=== PATIENT | male | born 1945 | race Caucasian/White ===

== ENCOUNTER 2021-05-23 11:09 | Outpatient (CLI) | payer OTHER, MEDICARE, SELFPAY ==
--- NOTE | ~2021-05-23 | XR_ITS ---
XR knee LT 3V DATE: 05/23/2021 11:33 INDICATION: Medial pain following injury from fall TECHNIQUE: 3 views including cross table lateral COMPARISON: None FINDINGS: There is severe loss of joint space at the medial compartment with periarticular spurring a t all 3 compartments, consistent with osteoarthritis. No fracture or dislocation or joint effusion. No periosteal reaction or bone destruction. There is enthesopathy of the patella at the quadriceps and patellar tendon insertion sites and enthes opathy at the anterior tibial tuberosity patellar tendon insertion site. IMPRESSION: Tricompartment osteoarthritic, involving the medial compartment most severely Reviewed, dictated and finalized at location A. IMPRESSION: Tricompartment osteoarthritic, involving the medial compartment mos t severely
== END 2021-05-23 11:10 | disposition home or self-care (01) ==
PROVIDERS: PCP Family Medicine; Visit Provider Nurse Practitioner Family
DX: S89.92XA Unspecified injury of left lower leg, initial encounter (principal); X58.XXXA Exposure to other specified factors, initial encounter; M17.12 Unilateral primary osteoarthritis, left knee
CPT/HCPCS: 73562

== ENCOUNTER 2022-02-23 12:37 | Outpatient (CLI) | payer MEDICARE, SELFPAY ==
--- NOTE | ~2022-02-23 | XR_ITS ---
EXAMINATION: XR ribs BI 3V w CXR 2V DATE: 02/23/2022 14:47 INDICATION: Posterior rib pain. TECHNIQUE: Frontal and lateral views of the chest, 2 views of the right ribs on 3 radiographs, and 2 views of the left ribs on 4 radiographs ribs were obtained. COMPARISON: Chest 2 views 06/11/2019 FINDINGS: CHEST TWO VIEWS: There is no pneumonia, pleural effusion, or pneumothorax. The heart size is normal. There is a moderate-sized hiatal hernia. BILATERAL RIBS: There are old left rib fractures. IMPRESSION: 1. No acute rib fracture. 2. Moderate-sized hiatal hernia. Reviewed, dictated and finalized at location A.
[2022-02-23 13:36] LABS: Basophils Percent Auto 0.6 % (0.2-1.2); Eosinophils Absolute Auto 0.3 K/mm3 (0-0.3); Eosinophils Percent Auto 5.2 % (0-4.4); Hemoglobin 14.3 g/dL (14.0-18.0); Immature Granulocyte Absolute 0.04 K/mm3 (0.00-0.031); Immature Granulocyte Percent A 0.6 % (0-0.5); Lymphocytes Absolute Auto 1.53 K/mm3 (0.9-3.2); Lymphocytes Percent Auto 24.2 % (18.3-44.2); Mean Corpuscular HGB Conc 31.8 g/dl (32-36); Mean Corpuscular Hemoglobin 30.4 pg (26-34); Mean Corpuscular Volume 95.7 fl (80-100); Mean Platelet Volume 10.1 fl (7.4-10.4); Monocytes Absolute Auto 0.7 K/mm3 (0.1-0.6); Monocytes Percent Auto 10.4 % (2.6-8.5); Neutrophils Absolute Auto 3.7 K/mm3 (1.3-6.7); Platelet Count Result 189 k/mm3 (150-375); Red Cell Distribution Width 13.9 % (11.5-14.5); White Blood Count 6.3 K/mm3 (4.5-10.0)
[2022-02-23 13:41] LABS: Anion Gap 7 mmol/L (8-16); Blood Urea Nitrogen 15 mg/dL (9-20); Calcium 8.5 mg/dL (8.4-10.2); Carbon Dioxide 27 mmol/L (22-30); Chloride 104 mmol/L (98-107); Estimated Glomerular Filt Rate > 60; Glucose 97 mg/dL (65-110); Potassium 4.1 mmol/L (3.4-5.0); Sodium 138 mmol/L (137-145)
[2022-02-23 14:11] LABS: Thyroid Stimulating Hormone 0.232 uIU/mL (0.465-4.680)
[2022-02-23 14:23] LABS: Free T4 Free Thyroxine 1.12 ng/mL (0.78-2.19)
== END 2022-02-23 12:38 | disposition home or self-care (01) ==
PROVIDERS: PCP Family Medicine; Visit Provider Family Medicine
DX: E03.9 Hypothyroidism, unspecified (principal); I10 Essential (primary) hypertension; D64.9 Anemia, unspecified; R07.81 Pleurodynia; K44.9 Diaphragmatic hernia without obstruction or gangrene
CPT/HCPCS: 36415; 71046; 71110; 80048; 84439; 84443; 85025

== ENCOUNTER 2022-03-01 11:34 | Outpatient (CLI) | payer MEDICARE, SELFPAY ==
--- NOTE | ~2022-03-01 | XR_ITS ---
XR abdomen/kub 1V 03/01/2022 11:58 Indication: Renal colic. Right-sided flank pain. Procedure: KUB Comparison: 06/11/2019 Findings: Bowel gas pattern is nonobstructive. No acute osseous abnormality. Moderate lumbar spondylo sis. Lung bases are unremarkable. There are pelvic phleboliths. Impression: 1: No acute abdominal abnormality. Reviewed, dictated and finalized at location B. Impression: 1: No acute abdominal abnormality.
== END 2022-03-01 11:35 | disposition home or self-care (01) ==
PROVIDERS: PCP Family Medicine; Visit Provider Physician Assistant Medical
DX: N23 Unspecified renal colic (principal)
CPT/HCPCS: 74018

== ENCOUNTER 2022-03-27 17:10 | Outpatient (CLI) | payer MEDICARE, SELFPAY ==
--- NOTE | ~2022-03-27 | XR_ITS ---
EXAM: XR thoracic spine 3V DATE: 03/27/2022 17:44 HISTORY: M54.6 - Pain in thoracic spine,RT SIDE, X2MO,NO KNOWN INJURY . COMPARISON: None available. FINDINGS: Vertebral body alignment intact. Slightly exaggerated thoracic kyphosis. Vertebral body he ights preserved. Multilevel disc space narrowing and marginal osteophytosis. 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 No traumatic malalignment or fracture. Visualized lung parenchyma is clear. IMPRESSION: Multilevel degenerative disc disease. DISH. Reviewed, dictated and finalized at location K.
--- NOTE | ~2022-03-27 | XR_ITS ---
EXAM: XR lumbar spine min 4V DATE: 03/27/2022 17:44 HISTORY: M54.50 - Low back pain X 2 MO, RT SIDE, NO KNOWN INJURY . COMPARISON: None available. FINDINGS: 5 nonrib-bearing lumbar-type vertebral bodies. Pedicles intact. 2 mm retrolisthesis of L3 on L4. Vertebral body heights preserved. Multilevel disc space narrowing and marginal osteophytosis, with severe narrowing at L2-3. Facet sclerosis and interspinous narrowing at all levels. No fracture or dislocation. Minimal aortic ossification, without evident aneurysm. IMPRESSION: Multilevel degenerative disc disease, severe at L2-3, where there is a grade 1 retrolisth esis. Multilevel lumbar facet arthropathy. Reviewed, dictated and finalized at location K. IMPRESSION: Multilevel degenerative disc disease, severe at L2-3, where there i s a grade 1 retrolisthesis. Multilevel lumbar facet arthropathy.
== END 2022-03-27 17:11 | disposition home or self-care (01) ==
PROVIDERS: PCP Family Medicine; Visit Provider Family Medicine
DX: M51.34 Other intervertebral disc degeneration, thoracic region (principal); M51.36 Other intervertebral disc degeneration, lumbar region
CPT/HCPCS: 72072; 72110

== ENCOUNTER 2022-06-14 10:10 | Outpatient (CLI) | payer MEDICARE, SELFPAY ==
--- NOTE | ~2022-06-14 | US_ITS ---
EXAMINATION: US venous doppler [facility] DATE: 06/14/2022 11:01 INDICATION: Left lower limb pain and swelling TECHNIQUE: Grayscale ultrasound images without and with compression and Doppler ultrasound images of the left lower extremity veins were obtained. COMPARISON: None. FINDINGS: The visualized portions of left common femoral vein, profunda (deep) femoral vein, femoral vein, popl iteal vein, peroneal veins, posterior tibial veins and greater saphenous vein outflow are patent. IMPRESSION: 1. No deep venous thrombosis in the left lower limb. Reviewed, dictated and finalized at location A.
== END 2022-06-14 10:11 | disposition home or self-care (01) ==
PROVIDERS: PCP Family Medicine; Visit Provider Family Medicine
DX: R60.0 Localized edema (principal)
CPT/HCPCS: 93971

== ENCOUNTER 2023-06-21 11:45 | Outpatient (CLI) | payer MEDICARE, SELFPAY ==
[2023-06-21 12:29] LABS: Hematocrit 46.8 % (42.0-52.0); Hemoglobin 14.9 g/dL (14.0-18.0); Mean Corpuscular HGB Conc 31.8 g/dl (32-36); Mean Corpuscular Hemoglobin 30.4 pg (26-34); Mean Corpuscular Volume 95.5 fl (80-100); Mean Platelet Volume 10.4 fl (7.4-10.4); Platelet Count Result 198 k/mm3 (150-375); Red Cell Distribution Width 14.2 % (11.5-14.5)
[2023-06-21 12:41] LABS: Iron 45 ug/dL (49-181)
[2023-06-21 12:43] LABS: Anion Gap 6 mmol/L (8-16); Blood Urea Nitrogen 15 mg/dL (9-20); Carbon Dioxide 31 mmol/L (22-30); Chloride 101 mmol/L (98-107); Estimated Glomerular Filt Rate > 60; Glucose 96 mg/dL (65-110); Potassium 4.3 mmol/L (3.4-5.0); Sodium 138 mmol/L (137-145)
[2023-06-21 12:51] LABS: Percent Iron Saturation 15 % (20-50)
[2023-06-21 12:59] LABS: Free T4 Free Thyroxine 1.33 ng/mL (0.78-2.19)
[2023-06-21 13:12] LABS: Prostate Specific Antigen 2.2 ng/mL (< OR = 4.0); Thyroid Stimulating Hormone 0.366 uIU/mL (0.465-4.680)
== END 2023-06-21 11:46 | disposition home or self-care (01) ==
LOC: ANHLAB 11:47
PROVIDERS: PCP Family Medicine; Visit Provider Family Medicine
DX: E03.9 Hypothyroidism, unspecified (principal); I10 Essential (primary) hypertension; N40.1 Benign prostatic hyperplasia with lower urinary tract symptoms; Z12.5 Encounter for screening for malignant neoplasm of prostate; D64.9 Anemia, unspecified
CPT/HCPCS: 36415; 80048; 83540; 83550; 84153; 84439; 84443; 85027; G0103

== ENCOUNTER 2024-04-02 14:35 | Outpatient (CLI) | payer MEDICARE, SELFPAY ==
--- NOTE | ~2024-04-02 | US_ITS ---
EXAMINATION: US venous doppler [facility] DATE: 04/02/2024 15:22 INDICATION: Lower limb swelling TECHNIQUE: Grayscale ultrasound images without and with compression and Doppler ultrasound images of the bilateral lower extremity veins were obtained. COMPARISON: None. FINDINGS: The visualized portions of right common femoral vein, profunda (deep) femoral vein, femoral vein, pop liteal vein, posterior tibial veins, peroneal veins, gastrocnemius vein and greater saphenous vein ou tflow are patent. The visualized portions of left common femoral vein, profunda femoral vein, femoral vein, popliteal v ein, posterior tibial veins, peroneal veins, gastrocnemius vein and greater saphenous vein outflow ar e patent. IMPRESSION: 1. No deep venous thrombosis in either lower limb. Reviewed, dictated and finalized at location A.
[2024-04-02 16:40] LABS: Hematocrit 47.3 % (42.0-52.0); Hemoglobin 14.8 g/dL (14.0-18.0); Mean Corpuscular HGB Conc 31.3 g/dl (32-36); Mean Corpuscular Hemoglobin 30.3 pg (26-34); Mean Corpuscular Volume 96.9 fl (80-100); Mean Platelet Volume 10.9 fl (7.4-10.4); Platelet Count Result 217 k/mm3 (150-375); Red Blood Count 4.88 M/mm3 (4.6-6.20); Red Cell Distribution Width 13.9 % (11.5-14.5); White Blood Count 5.8 K/mm3 (4.5-10.0)
[2024-04-02 17:00] LABS: Anion Gap 9 mmol/L (4-12); Blood Urea Nitrogen 14 mg/dL (9-20); Calcium 9.2 mg/dL (8.4-10.2); Carbon Dioxide 28 mmol/L (22-30); Chloride 103 mmol/L (98-107); Estimated Glomerular Filt Rate > 60; Glucose 89 mg/dL (65-110); Potassium 4.4 mmol/L (3.4-5.0); Sodium 140 mmol/L (137-145)
[2024-04-02 17:03] LABS: Iron 81 ug/dL (49-181)
[2024-04-02 17:13] LABS: Percent Iron Saturation 28 % (20-50)
[2024-04-02 17:18] LABS: Free T4 Free Thyroxine 1.31 ng/mL (0.78-2.19)
== END 2024-04-02 14:36 | disposition home or self-care (01) ==
PROVIDERS: PCP Family Medicine; Visit Provider Family Medicine
DX: R60.0 Localized edema (principal); D64.9 Anemia, unspecified; E03.9 Hypothyroidism, unspecified; I10 Essential (primary) hypertension
CPT/HCPCS: 36415; 80048; 82728; 83540; 83550; 84439; 84443; 85027; 93970

== ENCOUNTER 2024-12-28 17:29 | Outpatient (CLI) | payer MEDICARE, SELFPAY ==
[2024-12-28 17:59] LABS: Hematocrit 43.8 % (42.0-52.0); Hemoglobin 14.1 g/dL (14.0-18.0); Mean Corpuscular HGB Conc 32.2 g/dl (32-36); Mean Corpuscular Hemoglobin 31.6 pg (26-34); Mean Corpuscular Volume 98.2 fl (80-100); Mean Platelet Volume 10.5 fl (7.4-10.4); Platelet Count Result 182 k/mm3 (150-375); Red Blood Count 4.46 M/mm3 (4.6-6.20); Red Cell Distribution Width 14.1 % (11.5-14.5); White Blood Count 4.8 K/mm3 (4.5-10.0)
[2024-12-28 18:16] LABS: Iron 60 ug/dL (49-181)
[2024-12-28 18:17] LABS: Anion Gap 6 mmol/L (4-12); Blood Urea Nitrogen 14 mg/dL (9-20); Calcium 8.6 mg/dL (8.4-10.2); Carbon Dioxide 31 mmol/L (22-30); Chloride 102 mmol/L (98-107); Estimated Glomerular Filt Rate > 60; Glucose 105 mg/dL (65-110); Potassium 4.4 mmol/L (3.4-5.0); Sodium 139 mmol/L (137-145)
[2024-12-28 18:26] LABS: Percent Iron Saturation 20 % (20-50)
[2024-12-28 18:35] LABS: Free T4 Free Thyroxine 1.23 ng/dL (0.78-2.19)
[2024-12-28 18:48] LABS: Thyroid Stimulating Hormone 0.244 uIU/mL (0.465-4.680)
--- OUTSIDE RECORDS SUMMARY | 2024-12-28 19:04 | XMS_ITS | Clinical Summary ---
Author Organization [facility] Address [facility] [place] [address] Care Team Providers Care Laundry Marker Supervisor Name Role Phone Michael Jaimes MD Primary Care Provider [phone] Social History Tobacco Use Types Packs/Day Years Used Date Smoking Tobacco: Never Assessed Sex and Gender Information Value Date Recorded Sex Assigned at Not on file Legal Sex Male 8:04 AM CDT Gender Identity Not on file Sexual Orientation Not on file Plan of Treatment Health Maintenance Due Date Last Done Comments DTaP, Tdap and Td Vaccines ( 1 - Tdap) 1963 Zoster Vaccines (1 of 2) 1994 Annual Medicare Wellness Visit 2009 Pneumococcal Vaccine: 65+ Years (1 of 1 - PCV) 2009 RSV Immunization or 60+ Years (1 - 1-dose 75+ series) 2019 COVID-19 Vaccine (3 - 2023-2 5 season) 2024 01/26/2021, 12/29/2020 Influenza Adult (#1) 2024 Meningococcal B Vaccine Aged Out No l onger eligible based on patient's age to complete this topic Meningococcal Vaccine Aged Out No brennan patrica eligible based on patient's age to complete this topic RSV Immunizations Under 20 Months Aged Out No longer eligible b ased on patient's age to complete this topic Insurance [employer] Care Teams Laundry Marker Supervisor Relationship Specialty Start Date End Date Michael Jaimes MD [address] [place] [address] PCP - General FAMILY PRACTICE 05/31/21
--- OUTSIDE RECORDS SUMMARY | 2024-12-28 19:04 | XMS_ITS | Encounter Summary ---
Author Organization [facility] Address [address] [place] [address] Care Team Providers Care Eggs Inspector Name Role Phone Michael Jaimes MD Primary Care Provider [phone] Encounter Details Date Type Department Care Team (Late st Contact Info) Description 05/31/2016 Abstract [facility] CONVERSION [address] [place] [address] , Generic ConversionMD Social History Tobacco Use Types Packs/Day Years Used Date Smoking Tobacco: Never Assessed Sex and Gender Information Value Date Recorded Sex Assigned at Not on file Legal Sex Male 8:04 AM CDT Gender Identity Not on file Sexual Orientation Not on file documented as of this encounter Plan of Treatment Not on file documented as of this encounter Visit Diagnoses Not on filedocumented in this encounter Care Teams Eggs Inspector Relationship Specialty Start Date End Date Michael Jaimes MD [address] [place] [address] PCP - General FAMILY PRACTICE 05/31/21 documented as of this encounter
== END 2024-12-28 17:30 | disposition home or self-care (01) ==
LOC: ANHLAB 17:33
PROVIDERS: PCP Family Medicine; Visit Provider Family Medicine
DX: D64.9 Anemia, unspecified (principal); E03.9 Hypothyroidism, unspecified; I10 Essential (primary) hypertension
CPT/HCPCS: 36415; 80048; 82728; 83540; 83550; 84439; 84443; 85027